=== PATIENT | female | born 1960 | race Caucasian/White ===

== ENCOUNTER 2018-11-17 21:13 | Emergency (ER) | payer MEDICAID ==
[~2018-11-17] VITALS: Ht 175.3 cm; Wt 75.7 kg
[2018-11-17 21:21] VITALS: BP_SYST 146
--- NOTE | 2018-11-17 22:48 | NUR ---
PT AMBULATORY TO BED 2 FOR EVALUATION
--- NOTE | 2018-11-17 22:50 | NUR ---
Pt is awake and alert. Pt C/O generalized itchyness and redness when she scratches skin. No pain stated. Denies any change in food or medication. Denies any N/V/D. No signs of SOB or acute distress noted. Will continue to monitor.
--- NOTE | 2018-11-17 22:55 | NUR ---
ER MD YIP AT BEDSIDE EXAMINING PATIENT.
[2018-11-17] MEDS ORDERED: methylPREDNISolone SOD SUCC/PF 62.5 MG/ML VIAL IM ONE (23:15)
[2018-11-17 23:20] VITALS: BP_SYST 146
--- NOTE | 2018-11-17 23:20 | NUR ---
Patient given written and verbal discharge instructions and verbalizes understanding. ER MD Mendoza discussed with patient the results and treatment provided. Patient in stable condition. ID arm band removed. IV catheter removed intact and dressing applied, no active bleeding. Rx of Prednisone,and Benadryl given. Patient educated on pain management and to follow up with PMD. Pain Scale 0/10. Opportunity for questions provided and answered. Medication side effect fact sheet provided. Addendum: 11/18/18 at 0015 by [email or web address] Pt has no IV line.
== END 2018-11-17 23:20 | disposition home or self-care (01) ==
LOC: SED 21:13
DX: L29.9 Pruritus, unspecified (principal); R03.0 Elevated blood-pressure reading, without diagnosis of hypertension; F41.9 Anxiety disorder, unspecified; F32.9 Major depressive disorder, single episode, unspecified
CPT/HCPCS: 96372; 99283; J2930

== ENCOUNTER 2021-11-21 18:14 | Emergency (ER) | payer OTHER, MEDICAID ==
[~2021-11-21] VITALS: Ht 177.8 cm; Wt 79.4 kg
[2021-11-21 18:14] VITALS: BP_SYST 162
[2021-11-21] MEDS ORDERED: ACETAMINOPHEN 325 MG TABLET PO ONE (19:30)
== END 2021-11-21 19:47 | disposition home or self-care (01) ==
LOC: SED 18:14
DX: S00.03XA Contusion of scalp, initial encounter (principal); W22.8XXA Striking against or struck by other objects, initial encounter; Y93.89 Activity, other specified; Y92.89 Other specified places as the place of occurrence of the external cause; Y99.8 Other external cause status
CPT/HCPCS: 99283